=== PATIENT | female | born 1980 | race Caucasian/White ===

== ENCOUNTER → 2017-05-31 17:51 | Outpatient (CLI) | payer BC, SELFPAY | PROVIDERS: Visit Provider Obstetrics & Gynecology | DX: R30.0 Dysuria (principal) | CPT/HCPCS: 87077; 87086; 87088; 87186 ==

== ENCOUNTER → 2017-08-16 06:58 | Outpatient (CLI) | payer BC, SELFPAY ==
--- NOTE | 2017-08-20 10:49 | EEG ---
- Electroencephalogram date of service: 08/16/17 18 channel eeg performed for history of seizures. international 10-20 protocol was utilized in addition to ekg reference leads, hyperventilation and photic stim. background activity is 10hz symmetrically in the posterior leads which attenuates with eye opening. hyperventilation is performed for 3 minutes with good effort with no lateralizing or epileptiform changes. The post hyperventilatory phase was unremarkable. The patient remained awake throughout the recording without lateralizing or epileptiform changes. EKG is normal sinus rhythm for the majority of the recording however at times it is obscured by artifact. Photic stimulation generates a normal symmetric driving response in the posterior leads. Impression: Normal awake electroencephalogram.
== END ==
PROVIDERS: Visit Provider Nurse Practitioner Acute Care
DX: R56.9 Unspecified convulsions (principal)
CPT/HCPCS: 95819

== ENCOUNTER → 2017-10-14 07:16 | Outpatient (CLI) | payer BC, SELFPAY ==
[2017-10-14 10:13] LABS: Absolute Lymphocyte Count 1.06 X10^3/ul (0.83-4.51); Absolute Neutrophil Count 2.2 X10^3/uL (2.0-7.7); Basophil# 0.05 X10^3/uL; Basophil% 1.2 % (0-1); Color, Urine Yellow (Yellow); Eosinophil# 0.39 X10^3/uL; Glucose, Dipstick Normal (Normal); Hemoglobin 12.8 g/dl (12.0-15.0); Ketone-Dipstick Negative (Negative); Leukocyte Esterase-Dipstick Negative /ul (Negative); Lymphocyte # 1.06 X10^3/ul (4.0); Lymphocyte % 24.5 % (19-41); Mean Corp Hgb Conc 33.7 g/gl (32-36); Mean Corpuscular Hgb 30.8 pg (27.0-32.0); Mean Corpuscular Volume 91.6 fL (81-99); Mean Platelet Vol. 11.7 fl (6.2-12.0); Monocyte# 0.65 X10^3/uL; Neutrophil # 2.17 X10^3/uL (2.7-7.7); Neutrophil % 50.3 % (47-70); Nitrite-Dipstick Negative (Negative); Occult Blood-Urine Negative /ul (Negative); POSITIVE COUNT NO; POSITIVE DIFFERENTIAL NO; POSITIVE MORPHOLOGY NO; Platelet Count 229 K/mm3 (150-450); Protein-Dipstick Negative (Negative); RBC Distribution Width CV 11.7 % (11.6-14.6); Red Blood Count 4.15 M/mm3 (4.2-5.4); Specific Gravity, Urine 1.015 (1.002-1.030); Urine Bilirubin Dipstick Negative (Negative); Urine Clarity Sl. Cloudy (Clear); Urine Urobilinogen Normal (Normal); White Blood Count 4.3 K/mm3 (4.4-11.0)
[2017-10-14 10:35] LABS: ALB/GLOB Ratio 1.1 RATIO (0.9-2.4); AST(SGOT) 26 U/L (15-37); Alanine Aminotransfer ALT/SGPT 32 U/L (13-56); Albumin, Serum 3.7 g/dL (3.2-5.0); Alkaline Phosphatase 39 U/L (45-117); Anion Gap 7 (5-15); BUN 12 mg/dL (7-18); BUN/Creat Ratio 14.6 RATIO (10-20); Calcium,Total 8.6 mg/dL (8.5-10.1); Chloride 102 mmol/L (98-107); Cholesterol 137 mg/dL (200); Creatinine, Serum 0.82 mg/dL (0.55-1.02); EST Glomerular Filtration Rate 84 mL/min (>60); Est Glom Filt Rate - Afr Amer 102 mL/min (>60); Globulin 3.4 g/dL (2.2-4.2); Glucose 81 mg/dL (74-106); High Density Lipoprotein 57 mg/dL; Potassium 3.6 mmol/L (3.5-5.1); Protein, Total 7.1 g/dL (6.4-8.2); Sodium Level 140 mmol/L (136-145); Triglycerides 78 mg/dL; Very Low Density Lipoprotein 16 mg/dL (5-40)
== END ==
PROVIDERS: Family Provider Family Medicine; PCP Family Medicine; Visit Provider Family Medicine
DX: Z00.00 Encounter for general adult medical examination without abnormal findings (principal)
CPT/HCPCS: 36415; 80053; 80061; 81002; 85025

== ENCOUNTER → 2018-06-20 16:54 | Outpatient (CLI) | payer BC, SELFPAY ==
[2015-09-20 23:15] VITALS: BMI 23.3
[2018-06-20 16:59] LABS: Bacteria 0 SEEN /hpf (None Seen); Mucous, Urine 0 SEEN /hpf (<or=2+); Red Blood Cells-Urine 0 SEEN /hpf (0-5)
[2018-06-20 17:30] LABS: Color, Urine Straw (Yellow); Glucose, Dipstick Normal (Normal); Ketone-Dipstick Negative (Negative); Leukocyte Esterase-Dipstick 500 /ul (Negative); Nitrite-Dipstick Negative (Negative); Occult Blood-Urine 10 /ul (Negative); Protein-Dipstick Negative (Negative); Urine Bilirubin Dipstick Negative (Negative); Urine Clarity Cloudy (Clear); Urine Urobilinogen Normal (Normal)
[2018-06-20 17:45] LABS: White Blood Cells 10-25 SEEN /hpf (0-5)
[2018-06-20 17:48] LABS: Squamous Epithelial Cells - UA 0-5 SEEN /hpf (5-10); Transitional Epithelial - Ur 0 SEEN /hpf (0-5)
== END ==
PROVIDERS: Visit Provider Obstetrics & Gynecology
DX: N39.0 Urinary tract infection, site not specified (principal)
CPT/HCPCS: 81001; 87086; 87088; 87186

== ENCOUNTER → 2018-07-15 14:04 | Outpatient (CLI) | payer BC, SELFPAY ==
[2015-09-20 23:15] VITALS: BMI 23.3
== END ==
PROVIDERS: Referring Provider Obstetrics & Gynecology; Visit Provider Obstetrics & Gynecology
DX: R30.0 Dysuria (principal); R35.0 Frequency of micturition
CPT/HCPCS: 87086; 87088

== ENCOUNTER → 2018-10-18 16:47 | Outpatient (CLI) | payer BC, SELFPAY ==
[2015-09-20 23:15] VITALS: BMI 23.3
== END ==
PROVIDERS: Visit Provider Obstetrics & Gynecology
DX: Z12.4 Encounter for screening for malignant neoplasm of cervix (principal)

== ENCOUNTER → 2018-11-21 08:04 | Outpatient (CLI) | payer BC, SELFPAY ==
[2015-09-20 23:15] VITALS: BMI 23.3
[2018-11-21 10:11] LABS: Absolute Lymphocyte Count 1.12 X10^3/uL (0.83-4.51); Absolute Neutrophil Count 1.8 X10^3/uL (2.0-7.7); Basophil# 0.04 X10^3/uL; Basophil% 1.1 % (0-1); Color, Urine Yellow (Yellow); Eosinophil# 0.34 X10^3/uL; Glucose, Dipstick Normal (Normal); Hematocrit 39.2 % (37-47); Hemoglobin 12.8 g/dL (12.0-15.0); Ketone-Dipstick Negative (Negative); Leukocyte Esterase-Dipstick Negative /ul (Negative); Lymphocyte # 1.12 X10^3/ul (4.0); Lymphocyte % 29.7 % (19-41); Mean Corp Hgb Conc 32.7 g/dL (32-36); Mean Corpuscular Hgb 28.3 pg (27.0-32.0); Mean Corpuscular Volume 86.5 fL (81-99); Mean Platelet Vol. 11.5 fl (6.2-12.0); Monocyte% 13.3 % (0-10); NRBC Flagged by Analyzer 0 % (0-5); Neutrophil # 1.76 X10^3/uL (2.7-7.7); Neutrophil % 46.6 % (47-70); Nitrite-Dipstick Negative (Negative); Occult Blood-Urine Negative /ul (Negative); Platelet Count 227 K/mm3 (150-450); Protein-Dipstick Negative (Negative); RBC Distribution Width CV 12.1 % (11.6-14.6); RBC Distribution Width SD 38.5 fl (35.1-43.9); Red Blood Count 4.53 M/mm3 (4.2-5.4); Specific Gravity, Urine 1.015 (1.002-1.030); Urine Bilirubin Dipstick Negative (Negative); Urine Clarity Clear (Clear); Urine Urobilinogen Normal (Normal); White Blood Count 3.8 K/mm3 (4.4-11.0)
[2018-11-21 10:20] LABS: ALB/GLOB Ratio 0.9 RATIO (0.9-2.4); AST(SGOT) 17 U/L (15-37); Alanine Aminotransfer ALT/SGPT 27 U/L (13-56); Albumin, Serum 3.7 g/dL (3.2-5.0); Alkaline Phosphatase 46 U/L (45-117); Anion Gap 4 (5-15); BUN 16 mg/dL (7-18); Calcium,Total 8.6 mg/dL (8.5-10.1); Chloride 107 mmol/L (98-107); Cholesterol 151 mg/dL (200); Creatinine, Serum 0.89 mg/dL (0.55-1.02); EST Glomerular Filtration Rate 76 mL/min (>60); Est Glom Filt Rate - Afr Amer 92 mL/min (>60); Globulin 3.9 g/dL (2.2-4.2); Glucose 77 mg/dL (74-106); High Density Lipoprotein 56 mg/dL; Potassium 4.3 mmol/L (3.5-5.1); Protein, Total 7.6 g/dL (6.4-8.2); Sodium Level 139 mmol/L (136-145); Triglycerides 62 mg/dL; Very Low Density Lipoprotein 12 mg/dL (5-40)
== END ==
PROVIDERS: Family Provider Family Medicine; PCP Family Medicine; Referring Provider Family Medicine; Visit Provider Family Medicine
DX: Z00.00 Encounter for general adult medical examination without abnormal findings (principal)
CPT/HCPCS: 36415; 80053; 80061; 81002; 85025

== ENCOUNTER → 2019-08-01 15:00 | Outpatient (CLI) | payer BC, SELFPAY ==
[2015-09-20 23:15] VITALS: BMI 23.3
== END ==
PROVIDERS: PCP Family Medicine; Referring Provider Obstetrics & Gynecology; Visit Provider Obstetrics & Gynecology
DX: N39.0 Urinary tract infection, site not specified (principal)
CPT/HCPCS: 87086

== ENCOUNTER → 2020-01-26 07:01 | Outpatient (CLI) | payer BC, SELFPAY ==
[2020-01-26 10:07] LABS: Absolute Lymphocyte Count 1.03 X10^3/uL (0.83-4.51); Basophil# 0.03 X10^3/uL; Basophil% 0.7 % (0-1); Eosinophil# 0.64 X10^3/uL; Eosinophils% 15.3 % (0-5); Hematocrit 42.1 % (37-47); Hemoglobin 13.3 g/dL (12.0-15.0); Lymphocyte # 1.03 X10^3/ul (4.0); Lymphocyte % 24.6 % (19-41); Mean Corp Hgb Conc 31.6 g/dL (32-36); Mean Corpuscular Hgb 29.3 pg (27.0-32.0); Mean Corpuscular Volume 92.7 fL (81-99); Mean Platelet Vol. 11.6 fl (6.2-12.0); Monocyte# 0.46 X10^3/uL; NRBC Flagged by Analyzer 0 % (0-5); Neutrophil # 2.01 X10^3/uL (2.7-7.7); Neutrophil % 48.2 % (47-70); Platelet Count 254 K/mm3 (150-450); RBC Distribution Width CV 11.4 % (11.6-14.6); RBC Distribution Width SD 38.9 fl (35.1-43.9); Red Blood Count 4.54 M/mm3 (4.2-5.4); White Blood Count 4.2 K/mm3 (4.4-11.0)
[2020-01-26 10:14] LABS: Color, Urine Yellow (Yellow); Glucose, Dipstick Normal (Normal); Ketone-Dipstick Negative (Negative); Leukocyte Esterase-Dipstick Negative /ul (Negative); Nitrite-Dipstick Negative (Negative); Occult Blood-Urine Negative /ul (Negative); Protein-Dipstick Negative (Negative); Specific Gravity, Urine 1.015 (1.002-1.030); Urine Bilirubin Dipstick Negative (Negative); Urine Clarity Clear (Clear); Urine Urobilinogen Normal (Normal)
== END ==
PROVIDERS: PCP Family Medicine; Referring Provider Family Medicine; Visit Provider Family Medicine
DX: Z00.00 Encounter for general adult medical examination without abnormal findings (principal); Z13.0 Encounter for screening for diseases of the blood and blood-forming organs and certain disorders involving the immune mechanism; Z13.220 Encounter for screening for lipoid disorders
CPT/HCPCS: 36415; 81002; 85025

== ENCOUNTER 2020-12-22 13:44 | Emergency (ER) | payer BC, SELFPAY ==
[2020-12-22 13:46] VITALS: BP 111/73; PULSE 65; RESP 14; TEMP 36.2; O2SAT 100; BMI 24.0
--- NOTE | 2020-12-22 14:15 | EDS_ITS ---
HPI History of Present Illness Chief Complaint: Allergic Reaction Detail of Chief Complaint: Bee sting left upper arm Informant: patient Onset/Context/Timing Onset: Today Context: Sudden Onset Timing: Continuous Current Severity: Mild Maximum Severity: Mild Narrative Narrative: 32-year-old female past medical history of seizures and severe reaction to a bee sting. Was stung about 45 minutes ago now. Complaining of itching in her scalp. Mild swelling of her left upper arm. No trouble domenico thing. No wheezing. No swelling of her lips or tongue. Prior similar symptoms: Yes Recent Illness/Hospitalization: No PFSH PFSH Medical History Seizures Home Medications oxycodone-acetaminophen 1 - 2 tab PO Q4H PRN PRN #30 tab 03/18/13 [Rx Last Taken Unknown] docusate sodium [Colace] 100 mg PO BID PRN PRN #10 capsule 03/30/13 [Rx Last Taken Unknown] oxycodone-acetaminophen 1 - 2 tab PO Q4H PRN PRN #60 tab 03/30/13 [Rx Last Taken Unknown] promethazine 25 mg PO Q4H PRN PRN #10 tablet 03/30/13 [Rx Last Taken Unknown] doxycycline hyclate 100 mg PO BID #20 capsule 09/21/15 [Rx Last Taken Unknown] epinephrine 0.3 mg IM Q10M PRN PRN #2 ea 12/22/20 [Rx Last Taken Unknown] Allergy/AdvReac Type Severity Reaction Status Date / Time aspirin Allergy Anaphylaxis Verified 12/22/20 13:46 ibuprofen Allergy Anaphylaxis Verified 12/22/20 13:46 Penicillins Allergy Anaphylaxis Verified 12/22/20 13:46 venom-honey bee Allergy Anaphylaxis Verified 12/22/20 13:46 [bee venom (honey bee)] Social History Smoking Status: Former smoker ROS ROS ED ROS Narrative Denies recent illness. Review of Systems ROS Unobtainable: Denies due to encephalopathy Constitutional Constitutional ED: Denies chills or fever(s) Eyes Eyes: Denies change in vision ENT ENT ED: Denies ear pain or sore throat Cardiovascular Cardiovascular: Denies chest pain Respiratory/Chest Respiratory/Chest: Denies cough or dyspnea Gastrointestinal Gastrointestinal: Denies abdominal pain, diarrhea, nausea or vomiting Genitourinary Genitourinary ED: Denies dysuria or hematuria Musculoskeletal Musculoskeletal: Denies myalgias Integumentary Denies rash Neurologic Neurologic: Denies headache(s) Psychiatric Psychiatric: Denies depression Endocrine Endocrinology: Denies polyuria Allergic/Immunologic Allergic/Immunologic ED: Denies mouth swelling, tongue swelling or urticaria EXAM Physical Exam Narrative Exam Narrative: White female no acute distress. Vital signs stable afebrile. Pulse ox 9% on room air. HEENT exam unremarkable. No rash. No swelling of lips or tongues. No trouble breathing or swallowing. No stridor. Neck nontender. Lungs clear to auscultation bilaterally. Heart regular rate and rhythm rate about 65. Abdomen soft nontender. Moving all 4 extremities. No rashes. No edema or hives. Neurologically awake and alert. Patient does not have 1 area of local reaction to the left upper arm. With mild swelling. Stinger not in place. Const Vital Signs: 12/22/20 13:46 Temperature 97.2 F L Temperature Source Temporal Pulse Rate 65 Respiratory Rate 14 Blood Pressure 111/73 Blood Pressure Mean 85 Pulse Ox 100 Oxygen Delivery Method Room Air Positive well nourished and well developed; Negative for obese, cachectic, contractures or unkempt General Appearance ED: well developed and NAD; Negative for unkempt, cachectic, contractures, cyanotic or diaphoretic Nutritional Appearance: Negative for cachectic or obese HEENT Reports moist mucous membranes Negative for trauma or tenderness Eyes PERRL and EOMs intact bilaterally Neck no lymphadenopathy, supple and no JVD General: Negative for tenderness Chest Wall inspection of chest normal and palpation of chest normal Resp normal respiratory effort and clear to auscultation bilaterally Auscultation: Negative for rales, rhonchi or diminished lung sounds Cardio regular rate, regular rhythm, S1 normal heart sound, S2 normal heart sound and no murmurs GI normal to inspection, nondistended, normoactive bowel sounds, non-tender, non- distended and no masses Inspection: Negative for abdominal distention Auscultation: normoactive bowel sounds Palpation: soft; Negative for tender, guarding or rebound tenderness present Back/Spine no CVA tenderness Extremity Extremity Narrative: Left upper arm local reaction no bee sting. General Extremety ED: Yes edema; Negative for tenderness General Extremity: edema Neuro oriented x3 and CN's II-XII intact bilaterally Sensorium / Orientation: alert; Negative for orientation impaired, lethargic or stuporous Motor Exam: strength 5/5 throughout Psych mental status grossly normal Appearance: Negative for unkempt Skin no rashes or lesions noted Skin Narrative: Left upper arm bee sting. Local reaction. Rashes: rashes noted MDM MDM MDM Narrative Medical decision making narrative: Patient status post bee sting with prior significant reaction. Her EpiPen will be refilled. She will be given p.o. prednisone and Benadryl here. Is been about 45 minutes since the sting. She is not having an anaphylactic reaction. She is having a local Discharge Plan Triage Chief Complaint: Allergic Reaction ED Provider: Aren Romero Dx/Rx/DC Orders Clinical Impression: Local reaction to bee sting Instructions: ED Insect Sting, Local Reaction Prescriptions: New epinephrine 0.3 mg/0.3 mL auto-injector 0.3 mg IM Q10M PRN PRN (Reason: anaphylaxis) Qty: 2 RF: 1 No Action oxycodone-acetaminophen 1 TABLET tablet 1 - 2 tab PO Q4H PRN PRN (Reason: Pain) Qty: 30 RF: 0 oxycodone-acetaminophen 1 TABLET tablet 1 - 2 tab PO Q4H PRN PRN (Reason: Pain) Qty: 60 RF: 0 promethazine 25 MG tablet 25 mg PO Q4H PRN PRN (Reason: Nausea) Qty: 10 RF: 0 docusate sodium [DOK] 100 MG capsule 100 mg PO BID PRN PRN (Reason: Constipation) Qty: 10 RF: 0 doxycycline hyclate 100 MG capsule 100 mg PO BID Qty: 20 RF: 0 Primary Care Provider: Sung Fairbanks Referrals: Sung Fairbanks MD [Primary Care Provider] - As Needed Activity Restrictions/Additional Instructions: Anytime you have a bee sting or severe allergic reaction use the epinephrine pen. That is for severe reactions if you are having trouble breathing, wheezing or short of breath or swelling of your lips or tongue. You can also take prednisone which is a steroid and Benadryl and/or Motrin. Ice to your left upper arm. Disposition Disposition: Home, Self Care
[2020-12-22] MEDS: DiphenhydrAMINE 25 MG Capsule PO (14:41)
[2020-12-22] MEDS: predniSONE 20 MG Tablet 40 MG PO (14:41)
[2020-12-22 14:43] VITALS: BP 116/79; PULSE 69; RESP 17; O2SAT 100
== END 2020-12-22 15:02 | disposition home or self-care (01) ==
LOC: ED 14:24
PROVIDERS: Emergency Provider Emergency Medicine; PCP Family Medicine
DX: T63.441A Toxic effect of venom of bees, accidental (unintentional), initial encounter (principal); L29.8 Other pruritus; M79.89 Other specified soft tissue disorders; Y92.9 Unspecified place or not applicable; Z79.899 Other long term (current) drug therapy; Z87.891 Personal history of nicotine dependence
CPT/HCPCS: 99283; J7030; A4216

== ENCOUNTER 2021-06-10 15:24 | Outpatient (CLI) | payer BC, SELFPAY ==
[2021-06-17 13:15] LABS: HPV APTIMA, High Risk Negative (Negative)
== END 2021-06-10 23:59 | disposition home or self-care (01) ==
LOC: LABSPEC 15:32
PROVIDERS: PCP Family Medicine; Visit Provider Student in an Organized Health Care Education/Training Program
DX: Z12.4 Encounter for screening for malignant neoplasm of cervix (principal)
CPT/HCPCS: 87624; 88175; G0145

== ENCOUNTER → 2021-08-05 | Outpatient (CLI) | payer BC, SELFPAY ==
[2021-08-05 11:33] LABS: HIV - WCH Non-Reactive (Nonreactive); Hepatitis B Surface Antibody Reactive; Hepatitis B Surface Antigen Non-Reactive (Nonreactive); Hepatitis C Antibody Non-Reactive (Nonreactive); Syphilis Antibodies Non-reactive
== END | disposition home or self-care (01) ==
PROVIDERS: PCP Family Medicine; Visit Provider Student in an Organized Health Care Education/Training Program
DX: Z11.3 Encounter for screening for infections with a predominantly sexual mode of transmission (principal)
CPT/HCPCS: 36415; 86703; 86706; 86780; 86803; 87340

== ENCOUNTER 2022-03-19 07:05 | Day surgery (SDC) | payer OTHER, SELFPAY ==
[2022-03-13 16:51] LABS: Hematocrit 36.7 % (37-47); Hemoglobin 12.1 g/dL (12.0-15.0); Mean Corpuscular Hgb 28.3 pg (27.0-32.0); Mean Corpuscular Volume 85.9 fL (81-99); Mean Platelet Vol. 10.6 fl (6.2-12.0); Platelet Count 323 K/mm3 (150-450); RBC Distribution Width SD 43.7 fl (35.1-43.9); Red Blood Count 4.27 M/mm3 (4.2-5.4); White Blood Count 5.7 K/mm3 (4.4-11.0)
[2022-03-19] VITALS (8 sets, daily range): BP systolic 101–128; BP diastolic 68–90; PULSE 75–87; RESP 16–18; TEMP 36.1–36.7; O2SAT 99–100; BMI 23.4
--- NOTE | 2022-03-19 06:02 | PCM.HP.BLA ---
History and Physical Date of Admission: 03/19/22 HPI: 41-year-old female with abnormal uterine bleeding plan for hysteroscopy, dilation and curettage. Denies headache or vision changes, chest pain or shortness of breath, nausea or vomiting, diarrhea or constipation, fevers or chills. 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 Patient had 24-week emergent classical section with demise. Medical history: 1. ADHD 2. Seizure disorder Surgical history: 1. section. 1 classical, 2 low transverse 2. LEEP 3. Tonsillectomy and adenoidectomy 4. Tubal ligation Medications: 1. Adderall 2. Keppra 3. Metronidazole Allergies: Penicillin, aspirin, ibuprofen Family history: Noncontributory Social history: Reports former tobacco use, denies alcohol or drug use Review of system: Negative otherwise stated above Physical exam: Vitals pending General: Patient is no acute distress HEENT: Normocephalic/atraumatic, PERRLA Cardiac: Regular rate and rhythm, no murmurs rubs or gallops Lungs: Clear to auscultation bilaterally Abdomen: Soft, nontender, nondistended Extremities: No edema Neurologic: Cranial nerves II through XII grossly intact, no focal deficits Musculoskeletal: Strength out of 5 throughout all extremities Assessment/plan: 41-year-old female with abnormal uterine bleeding, plan for hysteroscopy, dilation and curettage. All risk, benefits, alternatives discussed with the patient. Risk include but are not limited to: Risk of bleeding, transfusion, infection, injury to surrounding tissue including bowel/bladder/major abdominal vessels, VTE, ICU admission. Patient aware and consented.
[2022-03-19] MEDS: Lactated Ringers 1,000 ML 15 ML IV (07:50)
--- NOTE | 2022-03-19 08:50 | UTC_PTH ---
PATIENT: FELIX MARCANO LOC: [facility] [place] U#:[id number] AGE/SX: 41/F ROOM: RE03/19/[address]: Dr. Ami Drew DO : 1980 BED: DIS: 03/19/2022 SPEC #: [id number] RECD: 03/19/22 12:00 STATUS: CARLOS ALBERTO REKilo #: [id number] ETHAN: 03/19/22 08:[address]: Ami Drew DEPT: SURGICAL PATHOLOGY RECD BY: Kavya Workman ENTERED: 03/19/22 12:25 SP TYPE: CANDIDA SADLER DR: Dr. Sung Fairbanks MD Tissues: Uterine cervix, NOS Procedures: No Tissue Found Comments: Specimen was discarded in surgery. HEADER OPERATION: Hysteroscopy, dilation and curettage PRE-OP DIAGNOSIS: Abnormal uterine bleeding TISSUE SUBMITTED: Uterine curettings MICROSCOPIC DIAGNOSIS No specimen is received. GROSS DESCRIPTION No specimen is seen in the container. This information is conveyed to Dr. Drew?s office and OR by Christina Workman. / AMAIRANI:antony 03/19/2022
--- NOTE | 2022-03-19 09:20 | PCM.OPRPT ---
Report of Operation Date of Procedure: 03/19/22 Pre-Operative Diagnosis: Abnormal uterine bleeding Post-Operative Diagnosis: Abnormal uterine bleeding Surgery/Procedure Performed:: Hysteroscopy, dilation and curettage Description of Surgical Findings:: Normal-appearing external genitalia. Minimal uterine descensus. Cervix scarred in appearance status post LEEP. Generalized thickening of the endometrium Type of Anesthesia: MAC Specimen's removed: Endometrial curettings Estimated Blood Loss (mL): 5cc Fluids Replaced: 600cc Description of Procedure: Indication/risk/benefits: 41-year-old female with abnormal uterine bleeding plan for hysteroscopy, dilation curettage. All risk, benefits, alternatives were discussed patient. Risk include but are not limited to: Risk of bleeding to the point transfusion, infection, injury to surrounding tissue including bowel/bladder/uterine perforation, VTE, ICU admission. Patient were consented. Procedure: Patient taken to the operating room placed under sedation. Placed in the dorsal lithotomy position and prepped and draped in the usual sterile fashion. Weighted speculum placed in the posterior vagina and Beasley retractor used to visualize the cervix. Anterior lip of the cervix grasped with Allis clamp. Cervix sequentially dilated. Hysteroscope placed through the cervical canal and inspection of the endometrial cavity completed. Hysteroscope removed. Curettage completed in 360 degree manner. Allis clamp removed. Cervix hemostatic. Weighted speculum removed. At the end of procedure all needle, lap, sponge counts were correct. UOP: 100cc Complications None
--- NOTE | 2022-03-19 09:41 | DCINST_ITS ---
Discharge Instructions Diet Discharge Diet: No restrictions Activity Discharge Activity: Return to Normal Activity and May Shower May resume sexual activity in: 2 weeks Weight Bearing Status: Weight bearing as tolerated Lifting Restrictions: None Dressing / Incision Call your doctor if you observe: Fever of 101 or Higher, Change in Color, Inability to urinate, Using more than 1 pad per hour, Shortness of breath, Dizziness, Swelling in the ankles, Chest pain and Calf discomfort Follow Up Care Please Follow Up With: Ami Drew DO When: 1-2 week postoperative visit Test Results: Test results from this visit will be discussed in further detail at your follow- up appointment, if applicable. Discharge Plan Admission Primary Reason for Your Visit: Dilation and curettage Attending Provider: Ami Drew Primary Care Provider: Sung Fairbanks Discharge Orders/Prescriptions Prescriptions: Continued dextroamphetamine-amphetamine [Adderall XR] 15 mg capsule,extended release 24hr 15 mg PO DAILY levetiracetam [Keppra] 750 mg tablet 750 mg PO DAILY epinephrine 0.3 mg/0.3 mL auto-injector 0.3 mg IM Q10M PRN PRN (Reason: anaphylaxis) Qty: 2 1RF Rx Instructions: for 2 doses Probiotic 10 billion cell Capsule 10,000 mmu cells PO DAILY Referrals / Follow Up: Sung Fairbanks MD [Primary Care Provider] - Disposition Disposition (needs filled in before D/C Order can be placed): Home, Self Care
[2022-03-19] MEDS: Acetaminophen 500 MG Tablet 1000 MG PO (10:29)
== END 2022-03-19 10:55 | disposition home or self-care (01) ==
LOC: SDC 07:12 → AC 07:13
PROVIDERS: PCP Family Medicine; Referring Provider Student in an Organized Health Care Education/Training Program; Visit Provider Student in an Organized Health Care Education/Training Program
PROC: 0UDB8ZZ Extraction of Endometrium, Via Natural or Artificial Opening Endoscopic (ICD-10-PCS; CPT 58558; principal; 2022-03-19 08:40)
DX: N93.9 Abnormal uterine and vaginal bleeding, unspecified (principal); G40.909 Epilepsy, unspecified, not intractable, without status epilepticus; F90.9 Attention-deficit hyperactivity disorder, unspecified type; Z79.899 Other long term (current) drug therapy; Z87.891 Personal history of nicotine dependence
CPT/HCPCS: 58558; 00952; 36415; 85027; 86850; 86900; 86901; J7120; J2405

== ENCOUNTER 2022-05-20 07:06 | Emergency (ER) | payer OTHER, SELFPAY ==
[2022-05-20 07:07] VITALS: BP 156/96; PULSE 93; RESP 18; TEMP 35.9; O2SAT 100; BMI 24.0
--- NOTE | 2022-05-20 07:23 | CT_ITS ---
EXAM: CT MAXILLOFACIAL WITHOUT INTRAVENOUS CONTRAST CLINICAL INDICATION: Trauma left face TECHNIQUE: Helically acquired images were obtained of the face without intravenous contrast. This CT exam was performed using one or more of the following dose reduction techniques: automated exposure control, adjustment of the mA and/or kV according to patient size, and/or use of iterative reconstruction technique. This report was created using [employer] report generation technology. COMPARISON: None. FINDINGS: BONES/JOINTS: No suspicious lytic or blastic abnormality. SOFT TISSUES: Soft tissue contusion involving the left side of the face and orbit. No focal subcutaneous swelling. No discrete fluid collections. ORBITS: Normal. Both globes are unremarkable. Extraocular muscles are normal. Retrobulbar fat appears unremarkable. SINUSES: Partial opacification of paranasal sinuses suggestive of acute sinusitis. MASTOID AIR CELLS: Unremarkable as visualized. Clear. DENTAL: No acute findings. No periodontal osseous erosion. CT/Sinus/Facial Bone IMPRESSION: 1. No evidence of acute facial or orbital fracture. 2. Left facial and periorbital soft tissue contusion. 3. Paranasal sinusitis. Electronically Signed: Griffin Mckeon MD at 8:23 EST ,
--- NOTE | 2022-05-20 07:23 | CT_ITS ---
EXAM: CT HEAD WITHOUT INTRAVENOUS CONTRAST CLINICAL INDICATION: trauma- LEFT EYE AREA TECHNIQUE: Multiple axial images were obtained of the head without intravenous contrast. This CT exam was performed using one or more of the following dose reduction techniques: automated exposure control, adjustment of the mA and/or kV according to patient size, and/or use of iterative reconstruction technique. This report was created using [employer] report generation technology. COMPARISON: None. FINDINGS: BRAIN AND EXTRA-AXIAL SPACES: Focal encephalomalacic changes noted along the lateral and posterior portion of the right temporal lobe may be related to prior insult. No intra- or extra-axial hemorrhage. No evidence of acute infarct. No intracranial mass or mass effect. There is preservation of the victoria/white matter interface. Posterior fossa structures are unremarkable. Ventricles are appropriate for age. No hydrocephalus. Basal cisterns are patent. BONES/JOINTS: No suspicious lytic or blastic abnormality. SOFT TISSUES: Left facial contusion noted as well as left periorbital edema. SINUSES: Fluid present within the paranasal sinuses. MASTOID AIR CELLS: Normal. Clear. ORBITS: Visualized globes, extraocular muscles, optic nerves and retrobulbar fat appear unremarkable. CT/Brain/Head without Contrast IMPRESSION: 1. No acute intracranial abnormality. 2. Right temporal lobe encephalomalacia. 3. Left facial and periorbital soft tissue contusion. 4. Paranasal sinusitis. Electronically Signed: Griffin Mckeon MD at 8:17 EST ,
--- NOTE | 2022-05-20 07:23 | CT_ITS ---
EXAM: CT CERVICAL SPINE WITHOUT INTRAVENOUS CONTRAST CLINICAL INDICATION: trauma TECHNIQUE: Helically acquired images were obtained of the cervical spine without intravenous contrast. 2D reformatted images were reviewed. This CT exam was performed using one or more of the following dose reduction techniques: automated exposure control, adjustment of the mA and/or kV according to patient size, and/or use of iterative reconstruction technique. This report was created using [employer] report generation technology. COMPARISON: None. FINDINGS: VERTEBRAE: No fracture. No traumatic subluxation. No discrete lytic or blastic abnormality. Normal alignment. Normal craniocervical junction and cervicothoracic junction. DISCS/SPINAL CANAL/NEURAL FORAMINA: Calcified nucleus pulposus of the C7-T1 disc. Mild narrowing of the C4-5 disc. Mild central disc protrusion noted at C3-4 and C4-5 without significant spinal stenosis. Neural foramina are intact. SOFT TISSUES: Normal. No prevertebral soft tissue swelling. LYMPH NODES: Normal. No cervical adenopathy. LUNG APICES: Unremarkable as visualized. Clear. CT/Spine Cervical without Contras IMPRESSION: No acute cervical spine fracture or subluxation. Disc changes as described. Electronically Signed: Griffin Mckeon MD at 8:27 EST ,
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
[2022-05-20] MEDS: Acetaminophen 500 MG Tablet 1000 MG PO (07:33)
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
== END 2022-05-20 08:40 | disposition home or self-care (01) ==
PROVIDERS: Emergency Provider Emergency Medicine; PCP Family Medicine; Visit Provider Emergency Medicine
DX: S00.83XA Contusion of other part of head, initial encounter (principal); G40.909 Epilepsy, unspecified, not intractable, without status epilepticus; F17.210 Nicotine dependence, cigarettes, uncomplicated; S49.92XA Unspecified injury of left shoulder and upper arm, initial encounter; Y04.8XXA Assault by other bodily force, initial encounter; Z79.899 Other long term (current) drug therapy
CPT/HCPCS: 70450; 70486; 72125; 73060; 99283

== ENCOUNTER → 2022-07-07 | Outpatient (CLI) | payer OTHER, MEDICAID, SELFPAY ==
[2022-07-07 14:57] LABS: Estradiol 98.4 pg/mL; Follicle Stimulating Hormone 3.4 mIU/mL; Luteinizing Hormone 10.5 mIU/mL
== END | disposition home or self-care (01) ==
LOC: WOBLAB 14:14
PROVIDERS: PCP Family Medicine; Visit Provider Student in an Organized Health Care Education/Training Program
DX: N76.0 Acute vaginitis (principal)
CPT/HCPCS: 36415; 82670; 83001; 83002; 84144

== ENCOUNTER → 2022-10-29 | Outpatient (CLI) | payer OTHER, MEDICAID, SELFPAY ==
--- NOTE | 2022-10-29 08:18 | BI_ITS ---
MAMMOGRAPHY - BILATERAL SCREENING REASON FOR EXAM: Female, 42 years old. Routine annual screening examination. PERTINENT HISTORY: Non-contributory. TECHNIQUE: Digital bilateral breast jayesh (3D mammographic acquisition) in the CC and MLO projections. 2-D mediolateral oblique (MLO) and craniocaudad (CC) views of both breasts were obtained. CAD: Full Field Digital Mammography with Computer Added Detection was performed. COMPARISON: None. Baseline examination. FINDINGS: Breast Composition: The breasts are heterogeneously dense, which may obscure small masses. There is a 7.6 mm x 9.7 mm well-defined nodule in the slightly upper anterior medial aspect of the right breast. Correlation with ultrasound is recommended. No other significant abnormalities are identified. BI/SCRN MAMM (CAD)W/JAYESH BILAT IMPRESSION: 7.6 mm x 9.7 mm well-defined nodule in the slightly upper anterior medial aspect of the right breast. Correlation with ultrasound is recommended. ASSESSMENT CATEGORY: BIRADS Category 0: Incomplete. Need additional imaging evaluation. A letter regarding these results will be sent to the patient by the facility within 30 days. Approximately 10% of breast cancers are not detected by mammography. A normal mammogram should not delay biopsy of a clinically suspicious abnormality. [id number] Electronically Signed: Jae Singh MD at 9:44 EDT ,
== END | disposition home or self-care (01) ==
LOC: OPBI 08:16
PROVIDERS: PCP Family Medicine; Referring Provider Student in an Organized Health Care Education/Training Program; Visit Provider Student in an Organized Health Care Education/Training Program
DX: Z12.31 Encounter for screening mammogram for malignant neoplasm of breast (principal)
CPT/HCPCS: 77063; 77067

== ENCOUNTER → 2022-11-04 | Outpatient (CLI) | payer OTHER, MEDICAID, SELFPAY ==
--- NOTE | 2022-11-04 08:02 | US_ITS ---
STUDY: ULTRASOUND BREAST - RIGHT REASON FOR EXAM: Female, 42 years old. Abnormal screening mammogram. TECHNIQUE: Axial and longitudinal images of the RIGHT breast were performed with a high resolution ultrasound transducer. # OF IMAGES: 21 COMPARISON: Comparison is made with prior mammogram dated October 29, 2022. FINDINGS: RIGHT Breast: The mammographic abnormality corresponds to a 1.1 cm x 1 cm x 0.5 cm well-defined hypoechoic solid nodule with vascularity at the 1:00 position of the breast at 3 cm from the nipple. This may represent a fibroadenoma although tissue diagnosis is recommended. US/Breast Limited Unilateral IMPRESSION: 1.1 cm x 1 cm x 0.5 cm well-defined hypoechoic solid nodule with vascularity at the 1:00 position of the breast at 3 cm from the nipple. Biopsy recommended. ASSESSMENT CATEGORY: BIRADS Category 4: Suspicious - Biopsy Should Be Considered. A letter regarding these results will be sent to the patient by the facility within 30 days. Electronically Signed: Jae Singh MD at 14:14 EDT ,
== END | disposition home or self-care (01) ==
PROVIDERS: PCP Family Medicine; Referring Provider Student in an Organized Health Care Education/Training Program; Visit Provider Student in an Organized Health Care Education/Training Program
DX: R92.8 Other abnormal and inconclusive findings on diagnostic imaging of breast (principal)
CPT/HCPCS: 76642

== ENCOUNTER → 2022-11-18 | Outpatient (CLI) | payer OTHER, MEDICAID, SELFPAY ==
--- NOTE | 2022-11-18 10:00 | BRBX_PTH ---
PATIENT: FELIX MARCANO LOC: [facility] U#:[id number] AGE/SX: 42/F ROOM: RE11/18/[address]: Dr. Adri Bateman MD : 1980 BED: DIS: 11/18/2022 SPEC #: [id number] RECD: 11/18/22 10:44 STATUS: CARLOS ALBERTO REKilo #: [id number] ETHAN: 11/18/22 10:[address]: Adri Bateman DEPT: SURGICAL PATHOLOGY RECD BY: Margareth Mijares ENTERED: 11/18/22 11:12 SP TYPE: BREAST BX OTHR DR: Dr. Sung Fairbanks MD Tissues: Right breast, NOS Procedures: Surgery Specimen Level IV HEADER OPERATION: Right breast biopsy PRE-OP DIAGNOSIS: Right breast nodule TISSUE SUBMITTED: Right breast nodule tissue 1 o'clock, 3.0 cm MICROSCOPIC DIAGNOSIS Right breast nodule at 1 o'clock, needle core biopsy: Fibroadenoma. AM:antony 11/19/2022 MICROSCOPIC DESCRIPTION Slides are reviewed. GROSS DESCRIPTION Received in fixative is one container labeled with the patient's name and designated right breast nodule. The specimen consists of two elongated fragments of baldwin tissue that in aggregate measure 1.7 x 0.5 x0.1 cm. The specimen is totally submitted in one cassette. / AM:antony 11/18/2022 TC:5 CPT: 30478
== END | disposition home or self-care (01) ==
LOC: LABSPEC 10:47
PROVIDERS: PCP Family Medicine; Referring Provider Surgery; Visit Provider Surgery
DX: D24.1 Benign neoplasm of right breast (principal)
CPT/HCPCS: 88305

== ENCOUNTER 2023-03-05 08:59 | Outpatient (CLI) | payer OTHER, MEDICAID, SELFPAY ==
[2023-03-05 09:04] VITALS: BP 122/69; PULSE 84; RESP 16; TEMP 36.1
[2023-03-05] MEDS: Iron Sucrose Complex 300 MG in 0.9% Normal Saline (250mL Bag) 250 ML 177 MG IV (09:20)
[2023-03-05 11:34] VITALS: BP 129/82; PULSE 77; RESP 16; TEMP 36.4
== END 2023-03-05 09:00 | disposition home or self-care (01) ==
LOC: MEDOUTP 09:00
PROVIDERS: PCP Family Medicine; Referring Provider Family Medicine; Visit Provider Family Medicine
DX: D50.9 Iron deficiency anemia, unspecified (principal)
CPT/HCPCS: 96365; 96366; J1756; J7050; A4216

== ENCOUNTER 2023-08-24 15:43 | Emergency (ER) | payer OTHER, MEDICAID, SELFPAY ==
[2023-08-24 15:46] VITALS: BP 191/112; PULSE 80; RESP 16; TEMP 36.4; O2SAT 97; BMI 24.0
--- NOTE | 2023-08-24 15:49 | EKG12_ITS ---
Test Reason : CHEST PAIN Blood Pressure : / mmHG Vent. Rate : 083 BPM Atrial Rate : 083 BPM P-R Int : 148 ms QRS Dur : 082 ms QT Int : 368 ms P-R-T Axes : 047 050 046 degrees QTc Int : 432 ms Normal sinus rhythm Normal ECG Confirmed by Robert Carmona ([id number]), photographic editor SYBIL CHRISTINE ([id number]) on 08/25/2023 12:57:20 PM Referred By: Confirmed By:oRbert Carmona
[2023-08-24 16:22] LABS: Absolute Lymphocyte Count 1.91 X10^3/uL (0.83-4.51); Basophil# 0.04 X10^3/uL; Basophil% 0.6 % (0-1); Eosinophil# 0.34 X10^3/uL; Eosinophils% 4.8 % (0-5); Hematocrit 43.4 % (37-47); Hemoglobin 14.4 g/dL (12.0-15.0); Lymphocyte # 1.91 X10^3/ul (0.83-4.51); Lymphocyte % 27.1 % (19-41); Mean Corp Hgb Conc 33.2 g/dL (32-36); Mean Corpuscular Hgb 30.1 pg (27.0-32.0); Mean Corpuscular Volume 90.8 fL (81-99); Mean Platelet Vol. 10.9 fl (6.2-12.0); Monocyte# 0.72 X10^3/uL; Monocyte% 10.2 % (0-10); NRBC Flagged by Analyzer 0 % (0-5); Neutrophil # 4.04 X10^3/uL (2.7-7.7); Neutrophil % 57.2 % (47-70); Platelet Count 299 K/mm3 (150-450); RBC Distribution Width CV 12.1 % (11.6-14.6); RBC Distribution Width SD 40.4 fl (35.1-43.9); Red Blood Count 4.78 M/mm3 (4.2-5.4); White Blood Count 7.1 K/mm3 (4.4-11.0)
--- NOTE | 2023-08-24 16:30 | RAD_ITS ---
STUDY: X-RAY CHEST REASON FOR EXAM: Female, 42 years old. chest pain TECHNIQUE: Single AP portable view of the chest. COMPARISON: None. FINDINGS: The lungs are clear and expanded. There is no demonstrated pleural abnormality. Normal size heart. Normal mediastinum and renetta. Normal visualized pulmonary arteries. Normal visualized aortic arch and descending thoracic aorta. Normal visualized thoracic spine. Normal visualized ribs, clavicles, and shoulders. There is no demonstrated abnormality of the visualized soft tissue structures of the upper abdomen. RAD/Chest 1 View (Portable) IMPRESSION: Normal x-ray examination of the chest. Electronically Signed: Oswald Johnson MD at 16:58 EDT ,
[2023-08-24 16:39] VITALS: BP 112/81; PULSE 75; RESP 18; O2SAT 99
[2023-08-24 16:45] LABS: Anion Gap 6 (5-15); BUN 8 mg/dL (7-18); BUN/Creat Ratio 9.4 RATIO (10-20); Calcium,Total 9.8 mg/dL (8.5-10.1); Chloride 104 mmol/L (98-107); Creatinine, Serum 0.85 mg/dL (0.55-1.02); EST Glomerular Filtration Rate 78 mL/min (>60); Est Glom Filt Rate - Afr Amer 95 mL/min (>60); Estimated Creatinine Clearance 75.97 ml/min; Glucose 109 mg/dL (74-106); Potassium 3.6 mmol/L (3.5-5.1); Sodium Level 137 mmol/L (136-145); Troponin-I HS (w/2H Reflex) 3 pg/mL (3.0-54.0)
[2023-08-24 17:00] VITALS: BP 122/90; PULSE 78; RESP 18; O2SAT 100
--- NOTE | 2023-08-24 17:21 | EDS_ITS ---
HPI History of Present Illness Chief Complaint: Chest Pain Narrative Narrative: 42-year-old female presenting with chest pain. She points to the sternum. She states it feels like her sternum needs to crack. She states it feels like when her back needs to crack. She states it started at 830 this morning has been constant all day. Denies dizziness, lightheadedness, nausea, vomiting. Denies radiation. She states that when she moves it makes it worse. Patient states she does not have any heart problems. She is a smoker. She states she is not on control. Patient does state however she is a runner and she ran 6 miles yesterday without any chest pain. PE Risk Factors: Negative for Recent Travel/Surgery, Recent Immobilization, Prior DVT or PE, Cancer or OCP + Smoking + >/=35 PFSH PFSH Medical History Hx of LEEP (loop electrosurgical excision procedure) of cervix complicating TBI (traumatic brain injury) Smoker Hx of fracture of ankle Bee sting Seizures Home Medications ?Medication ?Instructions ?Recorded ?Last Taken ?Type epinephrine 0.3 mg/0.3 mL 0.3 mg (0.3 mL) IM Q10M PRN PRN 12/22/20 Unknown Rx injection, auto-injector anaphylaxis #2 ea dextroamphetamine-amphetamine ER 20 mg PO DAILY 06/10/21 Unknown History 15 mg 24hr capsule,extend release (Adderall XR) levetiracetam 750 mg tablet 750 mg PO DAILY 06/10/21 Unknown History (Keppra) Lactobacillus acidophilus 10 10,000 mmu cells PO DAILY 03/18/22 Unknown History billion cell capsule (Probiotic) Allergy/AdvReac Type Severity Reaction Status Date / Time aspirin Allergy Anaphylaxis Verified 08/24/23 15:46 ibuprofen Allergy Anaphylaxis Verified 08/24/23 15:46 Penicillins Allergy Anaphylaxis Verified 08/24/23 15:46 venom-honey bee (bee venom Allergy Anaphylaxis Verified 08/24/23 15:46 (honey bee)) Family History Other No pertinent family history Surgical History History of Social History Smoking Status: Current every day smoker tobacco type: cigarettes alcohol intake: never substance use type: does not use ROS ROS ED Constitutional Constitutional ED: Denies chills, fever(s) or sweats Eyes Eyes: Denies blurry vision or change in vision ENT ENT ED: Denies ear pain or sore throat Cardiovascular Cardiovascular: Reports chest pain; Denies palpitations or racing heartbeat Respiratory/Chest Respiratory/Chest: Denies cough, dyspnea or sputum Gastrointestinal Gastrointestinal: Denies abdominal pain, constipation, diarrhea, nausea or vomiting Genitourinary Genitourinary ED: Denies dysuria, hematuria or urinary frequency Musculoskeletal Musculoskeletal: Denies arthralgias, myalgias or neck pain Integumentary Denies abscess, Abrasions or rash Neurologic Neurologic: Denies headache(s), paresthesias or weakness Psychiatric Psychiatric: Denies anxiety, depression, suicidal ideation or suicidal thoughts Endocrine Endocrinology: Denies polydipsia or polyuria EXAM Physical Exam Const Vital Signs: 08/24/23 15:46 08/24/23 16:30 08/24/23 16:39 Temperature 97.5 F L Temperature Source Temporal Pulse Rate 80 75 Respiratory Rate 16 18 Respiratory Effort Blood Pressure 191/112 H 112/81 H Blood Pressure Mean 138 91 Pulse Ox 97 99 Oxygen Delivery Method Room Air Room Air Room Air 08/24/23 16:40 08/24/23 17:00 Temperature Temperature Source Pulse Rate 78 Respiratory Rate 18 Respiratory Effort Normal Blood Pressure 122/90 H Blood Pressure Mean 100 Pulse Ox 100 Oxygen Delivery Method Room Air Positive well nourished General Appearance ED: NAD HEENT Reports moist mucous membranes normocephalic Eyes PERRL and EOMs intact bilaterally Chest Wall Chest Narrative: Tenderness palpation over the sternum midline. No deformity. Equal symmetric breath sounds chest wall rise. Resp normal respiratory effort and clear to auscultation bilaterally Auscultation: Negative for rales, rhonchi or wheezes Cardio regular rate and regular rhythm Neuro oriented x3 and CN's II-XII intact bilaterally Sensorium / Orientation: awake and alert Psych mental status grossly normal Skin no rashes or lesions noted Heart Score History: Slightly/Non-Suspicious ECG: Normal Age: </= 45 years Risk Factors: 1 or 2 Risk Factors Troponin: </= Normal Limit Score: 1 MDM MDM MDM Narrative Medical decision making narrative: Patient presenting with constant chest pain all day since 8:30 AM. HEART score of 1. Differential includes ACS, pneumonia, costochondritis. Considered PE however patient is PERC negative. In addition she ran 6 miles yesterday without any chest pain. Exam is consistent with costochondritis. EKG is sinus rhythm at 83 bpm without sign of ischemic change or ectopy on my interpretation. Chest x-ray my interpretation shows no acute cardiopulmonary process. Radiologist interpretation agrees. CBC was obtained to assess white blood cell count, hemoglobin, platelets. BMP to assess renal function, lipids, glucose. High-sensitivity troponin is 3 after nonstop chest pain all day so I do not think she is a delta troponin. At this point patient is stable for discharge. All questions were answered. Impression: 1. chest pain 2. Costochondritis Lab Data Labs: Laboratory Results - last 24 hr 08/24/23 16:12 WBC 7.1 RBC 4.78 Hgb 14.4 Hct 43.4 MCV 90.8 MCH 30.1 MCHC 33.2 RDW Std Deviation 40.4 RDW Coeff of Jeanine 12.1 Plt Count 299 MPV 10.9 Immature Gran % (Auto) 0.100 Neut % (Auto) 57.2 Lymph % (Auto) 27.1 [place] % (Auto) 10.2 H Eos % (Auto) 4.8 Baso % (Auto) 0.6 Absolute Neuts (auto) 4.0 Absolute Lymphs (auto) 1.91 Nucleated RBC % 0 Sodium 137 Potassium 3.6 Chloride 104 Carbon Dioxide 27.0 Anion Gap 6 BUN 8 Creatinine 0.85 Estim Creat Clear Calc 75.97 Est GFR (MDRD) Af Amer 95 Est GFR (MDRD) Non-Af 78 BUN/Creatinine Ratio 9.4 L Glucose 109 H Calcium 9.8 Troponin I High Sens 3 Radiography Diagnostic Testing: Clinical Impression(s) from Imaging Studies Chest X-Ray 08/24/23 16:30 IMPRESSION: Normal x-ray examination of the chest. Electronically Signed: Oswald Johnson MD at 16:58 EDT , Discharge Plan Triage Chief Complaint: Chest Pain ED Provider: Rodney Eaton Dx/Rx/DC Orders Instructions: ED Chest Pain, Noncardiac, ED Chest Wall Pain, Costochondritis Prescriptions: No Action dextroamphetamine-amphetamine [Adderall XR] 15 mg capsule,extended release 24hr 20 mg PO DAILY levetiracetam [Keppra] 750 mg tablet 750 mg PO DAILY epinephrine 0.3 mg/0.3 mL auto-injector 0.3 mg IM Q10M PRN PRN (Reason: anaphylaxis) Qty: 2 1RF Rx Instructions: for 2 doses Probiotic 10 billion cell Capsule 10,000 mmu cells PO DAILY Primary Care Provider: Sung Fairbanks Referrals: Sung Fairbanks MD [Primary Care Provider] - Print Language: Malay Disposition Disposition: Home, Self Care
[2023-08-24 17:44] VITALS: BP 111/80; PULSE 70; RESP 18; TEMP 36.1; O2SAT 100
[2023-08-24 18:19] LABS: Reflex Troponin-HS? (from REC) Y
== END 2023-08-24 17:48 | disposition home or self-care (01) ==
LOC: ED 17:19
PROVIDERS: Emergency Provider Student in an Organized Health Care Education/Training Program; PCP Family Medicine; Visit Provider Student in an Organized Health Care Education/Training Program
DX: M94.0 Chondrocostal junction syndrome [Tietze] (principal); F17.210 Nicotine dependence, cigarettes, uncomplicated
CPT/HCPCS: 71045; 80048; 84484; 85025; 93005; 99283; A4216